=== PATIENT | male | born 2000 | race African-American/Black ===

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

== ENCOUNTER 2022-04-03 05:29 | Emergency (ER) | payer OTHER ==
[~2022-04-03] VITALS: Ht 185.4 cm; Wt 122.7 kg
[~2022-04-03 05:29] MED LIST changes: +VYVANSE40 MG PO
[2022-04-03 05:34] VITALS: BP 118/64
[2022-04-03 05:57] LABS: URINE BILIRUBIN - DIPSTICK NEGATIVE (NEGATIVE); URINE BLOOD DIPSTICK NEGATIVE (NEGATIVE); URINE COLOR YELLOW; URINE GLUCOSE - DIPSTICK NEGATIVE (NEGATIVE); URINE KETONE NEGATIVE (NEGATIVE); URINE LEUK ESTERASE NEGATIVE (NEGATIVE); URINE NITRITE - DIPSTICK NEGATIVE (Negative); URINE PROTEIN - DIPSTICK NEGATIVE (NEG-TRACE); URINE SPECIFIC GRAVITY 1.025; URINE UROBILINOGEN - DIPSTICK 0.2 E.U./dL (0.2)
[2022-04-03 06:01] VITALS: BP 123/70
[2022-04-03 06:10] LABS: IMMATURE GRANULOCYTES 0.2 % (0.0-5.0); MEAN CELL VOLUME 88.4 fL CALC (80.0-100.0); MEAN CORPUSCULAR HGB 29.4 pG CALC (26.0-32.0); MEAN CORPUSCULAR HGB CONC 33.3 g/dL CAL (32.0-36.0); NEUT# 7.51 thou/uL (1.82-7.42); RED BLOOD COUNT 4.76 mill/uL (4.70-6.10); RED CELL DISTRI WIDTH 13.2 % (11.5-15.5)
[2022-04-03 06:12] LABS: HEMATOCRIT 42.1 % (39.0-50.0)
[2022-04-03 06:29] LABS: ALBUMIN 3.9 g/dL (3.2-5.0); ALKALINE PHOSPHATASE 38 u/l (38-126); AMYLASE 86 u/l (30-110); ANION GAP 12 (6-22 (CALC)); BILIRUBIN, TOTAL 0.3 mg/dL (0.0-1.4); BUN 13 mg/dL (9-20); BUN/CREATININE RATIO 10 (12-20 (CALC)); CARBON DIOXIDE 26 mmol/l (22-30); CHLORIDE 105 mmol/l (95-108); CREATININE 1.3 mg/dL (0.7-1.3); GFR FOR AFR.AMER. > 60 ML/MIN (>=60 (CALC)); GFR OTHER RACES > 60 ML/MIN (>=60 (CALC)); LIPASE 100 u/l (23-300); POTASSIUM 4.4 mmol/l (3.5-5.1); SGOT/AST 46 u/l (17-59); SODIUM 138 mmol/l (137-146); TOTAL PROTEIN 6.6 g/dL (6.3-8.2)
[2022-04-03 06:31] VITALS: BP 113/66
[2022-04-03 06:46] VITALS: BP 113/66
== END 2022-04-03 06:50 | disposition home or self-care (01) | DRG 179 ==
LOC: ED 05:29
PROVIDERS: Family Medicine
DX: U07.1 COVID-19 (principal); R50.9 Fever, unspecified; R52 Pain, unspecified; R10.9 Unspecified abdominal pain; J45.909 Unspecified asthma, uncomplicated

== ENCOUNTER 2023-12-18 10:19 | Emergency (ER) | payer OTHER ==
[~2023-12-18] VITALS: Ht 185.4 cm; Wt 129.2 kg
[2023-12-18] MEDS ORDERED: ZOFRAN4 MG/TAB PO ×2 (12:49→13:15)
[2023-12-18] MEDS ORDERED: AMOX/K CLAV875 M1 PO ×2 (12:49→13:15)
[2023-12-18 13:22] VITALS: BP 135/74
== END 2023-12-18 13:22 | disposition home or self-care (01) | DRG 153 ==
LOC: ED 10:19
DX: J06.9 Acute upper respiratory infection, unspecified (principal); Z20.822 Contact with and (suspected) exposure to COVID-19